=== PATIENT | female | born 1980 | race Caucasian/White ===

== ENCOUNTER 2019-02-24 20:44 | Inpatient (IN) | payer BC ==
[2019-02-24] MEDS ORDERED: NS 0.9% 1000 ML** 1,000 ML IV ONE (21:23)
[2019-02-24] MEDS ORDERED: Charcoal ACTIVATED* 25 GM/120 ML BTL PO ONE (21:23)
--- NOTE | 2019-02-24 21:25 | ED ---
Substance Abuse/Use - HPI Summary HPI Summary: Pt is a 38 year old F brought by EMS to [facility] with a chief complaint of substance abuse. Patient reports to have been at her fathers house when she took the whole bottle of Cymbalta pills after which her mom was bringing her by car to the ED but then EMS stopped them on the road completing the trip to the ED. Patient denies vomiting. Patient reports she didnt want to be here anymore . Per triage, patient took 30 60 mg of Cymbalta with 4 shots of [facility] [place] earlier tonight, 02/24/19. Symptoms aggravated by nothing. Symptoms alleviated by nothing. - History Of Current Complaint Chief Complaint: EDOverdose Stated Complaint: OVERDOSE PER EMS Time Seen by Provider: 02/24/19 21:19 Hx Obtained From: Patient Onset/Duration of Drug/ETOH Abuse: Hours Overdose Characteristics: Oral - pills Aggravating Factor(s): Nothing Alleviating Factor(s): Nothing Associated Signs And Symptoms: Other: - no vomiting - Allergies/Home Medications Allergies/Adverse Reactions: Allergies Allergy/AdvReac Type Severity Reaction Status Date / Time melatonin Allergy Hives Verified 02/24/19 21:03 Home Medications: Home Medications ALPRAZolam [Xanax] 1 mg PO BID PRN 02/24/19 [History Confirmed 02/24/19] DULoxetine CAP* [Cymbalta CAP*] 60 mg PO BID 02/24/19 [History Confirmed ] Gabapentin [Neurontin] 100 mg PO TID PRN 02/24/19 [History Confirmed 02/24/19] Meloxicam 7.5 mg PO BID PRN 02/24/19 [History Confirmed 02/24/19] Pantoprazole Sodium 40 mg PO DAILY 02/24/19 [History Confirmed 02/24/19] PMH/Surg Hx/FS Hx/Imm Hx Cardiovascular History: Reports: Hx Hypertension Sensory History: Denies: Hx Contacts or Glasses Opthamlomology History: Denies: Hx Contacts or Glasses - Surgical History Surgery Procedure, Year, and Place: tubal tonsillectomy Infectious Disease History: No Infectious Disease History: Denies: Traveled Outside the [place] in Last 30 Days - Family History Known Family History: Positive: Hypertension, Diabetes - Social History Alcohol Use: Occasionally Hx Substance Use: No Substance Use Type: Reports: None Hx Tobacco Use: No Smoking Status (MU): Never Smoked Tobacco Review of Systems Negative: Vomiting Psychological: Other - suicidal ideation, alcohol and substance abuse All Other Systems Reviewed And Are Negative: Yes Physical Exam - Summary Physical Exam Summary: VITAL SIGNS: Reviewed. GENERAL: Patient is a well-developed and nourished FEMALE who is lying comfortable in the stretcher. Patient is not in any acute respiratory distress. HEAD AND FACE: No signs of trauma. No ecchymosis, hematomas or skull depressions. No sinus tenderness. EYES: PERRLA, EOMI x 2, No injected conjunctiva, no nystagmus. EARS: Hearing grossly intact. Ear canals and tympanic membranes are within normal limits. MOUTH: Oropharynx within normal limits. NECK: Supple, trachea is midline, no adenopathy, no JVD, no carotid bruit, no c- spine tenderness, neck with full ROM CHEST: Symmetric, no tenderness at palpation LUNGS: Clear to auscultation bilaterally. No wheezing or crackles. CVS: Regular rate and rhythm, S1 and S2 present, no murmurs or gallops appreciated. ABDOMEN: Soft, non-tender. No signs of distention. No rebound no guarding, and no masses palpated. Bowel sounds are normal. EXTREMITIES: FROM in all major joints, no edema, no cyanosis or clubbing. NEURO: Alert and oriented x 3. No acute neurological deficits. Speech is normal and follows commands. SKIN: Dry and warm Psych: Suicidal Ideation Triage Information Reviewed: Yes Vital Signs On Initial Exam: Initial Vitals Temp Pulse Resp BP Pulse Ox 98.8 F 116 16 131/83 98 02/24/19 20:56 02/24/19 20:56 02/24/19 20:56 02/24/19 20:56 02/24/19 20:56 Vital Signs Reviewed: Yes Diagnostics - Vital Signs Vital Signs Temp Pulse Resp BP Pulse Ox 02/24/19 20:56 98.8 F 116 16 131/83 98 - Laboratory Result Diagrams: 02/24/19 21:38 02/24/19 21:38 Lab Statement: Any lab studies that have been ordered have been reviewed, and results considered in the medical decision making process. - EKG 2123 Cardiac Rate: NL - 108 BPM EKG Rhythm: Sinus Tachycardia Summary of EKG Findings: 108 BPM. Sinus tachycardia. Normal axis. Normal interval. No ischemic changes. Course/Dx - Course Course Of Treatment: Patient is a 38 year old F brought by EMS to [facility] with a chief complaint of substance abuse with rated severity of 5/10, per triage. Patient denies vomiting. Patient reports she didnt want to be here anymore. Per triage, patient took 30 60 mg of Cymbalta with 4 shots of [facility] earlier tonight, 02/24/19. Physical exam shows no abnormalities except for suicidal ideation. Bloodwork shows no abnormalities except for MCH 32 H and Potassium 2.9 L. Urinalysis shows no abnormalities except for Ur specific [place] 1.003 L, Urine Blood 1+ A, Ur Squamous Epith Cells Present A, Urine Bacteria 1+ A, and Serum Alcohol 90 H. Patient was given Charcoal 75 gm PO, Magnesium Sulfate 50 mls/hr, Metoclopramide Hcl 10 mg IV, Potassium Chloride 40 meq PO, Potassium Chloride 50 mls/hr, and saline. EKG reveals 108 BPM, Sinus tachycardia, Normal axis, Normal interval, and No ischemic changes. Patient was medically cleared for [facility]. Patient's case was reviewed by Dr. Donnelly, patient will be a voluntary admit [place] [facility] [place]. - Diagnoses Provider Diagnoses: Depressive episode - Physician Notifications Discussed Care Of Patient With: Paul Donnelly Time Discussed With Above Provider: 05:25 Instructed by Provider To: Other - Patient's case was reviewed by Dr. Donnelly, patient will be a voluntary admit to [facility] [place]. Discharge - Sign-Out/Discharge Documenting (check all that apply): Patient Departure - admit - Discharge Plan Condition: Stable Disposition: [facility]YCHIATRIC FACILITY[place] Referrals: Ran CABA,Bernadette Mclean [Primary Care Provider] - - Attestation Statements Document Initiated by Scribe: Yes Documenting Scribe: Danitza Farmer Provider For Whom Broderick is Documenting (Include Credential): Virginia Bunn MD Scribe Attestation: Mono Torres Alison Kim, scribed for Virginia Bunn MD on 02/25/19 at 0600. Status of Scribe Document: Ready
[2019-02-24 21:39] LABS: Urine Appearance Clear; Urine Bacteria 1+ (Absent); Urine Bilirubin Negative (Negative); Urine Blood 1+ (Negative); Urine Color Straw; Urine Glucose Negative (Negative); Urine Ketones Negative (Negative); Urine Nitrite Negative (Negative); Urine Protein Negative (Negative); Urine Red Blood Cell Trace(0-2/hpf) (Absent); Urine Specific Gravity 1.003 (1.010-1.030); Urine Squamous Epithelial Cell Present (Absent); Urine Urobilinogen Negative (Negative); Urine White Blood Cell Absent (Absent)
[2019-02-24 21:45] LABS: ABS Eosinophils 0.1 10^3/ul (0-0.6); ABS Lymphocytes 1.8 10^3/ul (1.0-4.8); ABS Monocytes 0.5 10^3/ul (0-0.8); ABS Neutrophils 4.1 10^3/ul (1.5-7.7); Eosinophil % 1.3 %; Hematocrit 43 % (35-47); Hemoglobin 14.3 g/dL (12.0-16.0); Lymphocyte % 27.3 %; Mean Corpuscular HGB Conc 34 g/dL (31-36); Mean Corpuscular Hemoglobin 32 pg (27-31); Mean Corpuscular Volume 95 fL (80-97); Mean Platelet Volume 8.7 fL (7.4-10.4); Nucleated Red Blood Cells % 0.1; Platelet Count 282 10^3/uL (150-450); Red Blood Count 4.52 10^6 /uL (3.70-4.87); Red Cell Distribution Width 15 % (10-15); White Blood Count 6.6 10^3/uL (3.5-10.8)
[2019-02-24 21:54] LABS: Urine Benzodiazepine Screen None Detected (None Detect); Urine Opiates Screen None Detected (None Detect)
[2019-02-24 22:02] LABS: ALT 25 U/L (7-52); AST 25 U/L (13-39); Albumin 4.2 g/dL (3.2-5.2); Albumin/Globulin Ratio 1.4 (1-3); Alkaline Phosphatase 81 U/L (34-104); Anion Gap 9 mmol/L (2-11); BUN/Creatinine Ratio 11.4 (8-20); Blood Urea Nitrogen 8 mg/dL (6-24); CO2 Carbon Dioxide 23 mmol/L (22-32); Calcium 8.7 mg/dL (8.6-10.3); Chloride 110 mmol/L (101-111); EGFR African American 113.9 (>60); EGFR Non-African American 94.2 (>60); Globulin 2.9 g/dL (2-4); Glucose 81 mg/dL (70-100); Potassium 2.9 mmol/L (3.5-5.0); Sodium 142 mmol/L (135-145); Total Protein 7.1 g/dL (6.4-8.9)
[2019-02-24 22:09] LABS: HCG Pregnancy < 0.60 mIU/mL
[2019-02-24 22:23] LABS: Acetaminophen < 15 mcg/mL; Alcohol 90 mg/dL (<10); Salicylate < 2.50 mg/dL (<30)
[2019-02-24] MEDS ORDERED: Metoclopramide IV* 5 MG/ML 2 ML VIAL IV SLOW PU ONE (22:28)
[2019-02-24] MEDS ORDERED: Potassium Chlor TAB* 20 MEQ TAB.ER PO ONE (22:34)
[2019-02-24] MEDS ORDERED: KCL 10 MEQ/50 ML IVPREMIX* 10 MEQ/50 ML BAG IV ONE (22:35)
[2019-02-24] MEDS ORDERED: Magnesium Sulfate 2 GM IV* 2 GM/50 ML BAG IVPB ONE (22:35)
[2019-02-24 22:38] LABS: TSH (Thyroid Stimulating Horm) 4.25 mcIU/mL (0.34-5.60)
[2019-02-25] MEDS ORDERED: Acetaminophen TAB* 325 MG ONE (11:13)
[2019-02-25] MEDS ORDERED: ALPRAZolam TAB* 0.5 MG PO ONE (11:15)
[2019-02-25] MEDS ORDERED: ALPRAZolam TAB* 0.5 MG ONE (11:17)
[2019-02-25] MEDS ORDERED: Al Hydrox/Mg Hydrox/Simet LIQ* 30 ML UDC PO PRN (11:45)
[2019-02-25] MEDS ORDERED: Pantoprazole TAB * 40 MG TAB PO SCH (14:00)
[2019-02-25] MEDS: Sulfamethox/Trimethoprim DS 800/160* TAB PO SCH ×2 (17:37→21:55)
[2019-02-25] MEDS: Pantoprazole TAB * 40 MG TAB PO SCH (17:38)
[2019-02-25] MEDS: ALPRAZolam TAB* 0.5 MG PO PRN (17:38)
--- NOTE | 2019-02-25 18:14 | HP ---
HISTORY AND PHYSICAL: DATE OF ADMISSION: 02/25/19 PROVIDER: Ivette Hernandez NP in Psychiatry SUPERVISING PHYSICIAN: Shakir Ramos MD * (DICTATED BY IVETTE HERNANDEZ NP ) JUSTIFICATION FOR ADMISSION: The patient is in need of 24-hour supervision and care secondary to suicidal ideation and status post over dose of Cymbalta. CHIEF COMPLAINT: "I always mess everything up. I hate this place. I just don' t understand it." HISTORY OF PRESENT ILLNESS: The patient is a 38-year-old white female with a history of major depressive disorder and anxiety disorder, who arrived brought in by her and is here on a voluntary status after taking approximately 30 60-mg Cymbalta capsules. Lona took these pills after deciding she felt as though she was "done for the day." She had alcohol and Coca-Cola. She drank approximately 4 shots of [place] and then took the Cymbalta along with it. This was precipitated by her 17 -year-old daughter who also lives with her father, which is Lona's ex- . Her daughter came to visit and was quite angry with Lona. The daughter, Dolores, wanted a pet rat that Lona said she could not have and that made Dolores, the daughter, cry and cry. She also got quite angry. Dolores also tends to push Lona's buttons by asking her to take her to [facility] [place] after Lona gets home from work. Lona has been diagnosed with fibromyalgia. She also believes she may have instead psoriatic arthritis; in any case, she is in pain by the end of the day. 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 The people she works with are not supportive. She states they are mean, they are inconsiderate and she feels as though she is the one who gets called on the carpet to answer for their bad behavior. 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 This is very hard on her body. Her doctor has asked that she only works 20 hours a week , but the [employer] will not employ her in this fashion and instead she must work 40. This pain she is in by the end of the day makes it quite hard for her to go to [facility] [place] with her daughter. The daughter is not understanding of Lona's difficulties. When Lona's found out she had taken an overdose he got quite upset "snapped." In addition, her father is sick with cancer and recently had a large portion of a tumor removed from his brain. The brain cancer had metastasized from his lungs and now there is also cancer in his shoulder and in his blood. These persistent stressors leave Lona feeling as though she cannot catch a break and that she is completely out of energy and reserves. PAST PSYCHIATRIC HISTORY: She has never been admitted to a psychiatric hospital before. She receives her medications from her primary care provider, Bernadette Tong MD. By the time she got to the hospital, she determined that she was no longer suicidal. However, she was unable to make convincingly safe statements, continuing to endorse the fact that she was tired and that she was done, and that she did not have much to live for. MEDICATIONS: Her medications include: 1. Cymbalta 60 mg, which she has taken for years. 2. Pantoprazole 40. 3. Propranolol 25. 4. Xanax 1 mg b.i.d. p.r.n. 5. Nicotine gum. 6. Meloxicam 7.5 mg. She takes this and finds relief. She can raise her arms over her head and she is much more free of pain than she is within the other medication. 7. She also takes gabapentin 100 mg b.i.d. with 100 mg t.i.d. available p.r.n. In addition, she takes caffeine in by way of coffee. She drinks 4 to 5 cups of coffee a day. FAMILY HISTORY: She states that she has always been the difficult child. Her brother, Daniel, was in and their mother brags about him, but not about the Lona. Lona states that her mother never wanted her, even though Lona now mows the lawn and helps around at home. SUBSTANCE ABUSE: Approximately a year ago, Lona was drinking every day, but now she has no one to drink with and she states she does not drink much now only once in a while with her father, but he is too sick to drink very often. SOCIAL HISTORY: She lives with her at home. Her daughter, Dolores, is 17 and she splits her time between Lona's ex- and Lona herself. 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 She has never been in the . She has no legal problems at this time. REVIEW OF SYSTEMS: The patient reports feeling fatigued. She denies shortness of breath, heat or cold intolerance, chest pain, or abdominal pain. She does have aches and pains throughout most of her body. She denies other neurological symptoms. Denies fever and changes in weight. PHYSICAL EXAMINATION GENERAL: The patient is a well-developed and nourished female who is sitting on the bench next to ak. She is not in any acute respiratory distress. VITAL SIGNS: On 02/25/19 at 06:22, temperature is 97.2, pulse 99, respirations 18, O2 sat 100, blood pressure 129/78. HEENT: Head and face: No signs of trauma, no ecchymosis, hematomas or skull depressions, no sinus tenderness. Eyes: PERRLA and EOMI x2, no injected conjunctiva, no nystagmus. Ears: Hearing grossly intact. Ear canal and tympanic membranes are within normal limits. Mouth: Oropharynx is within normal limits. NECK: Supple. Trachea midline. No adenopathy. No JVD. No carotid bruit. No C- spine tenderness. Neck with full range of motion. CHEST: Symmetric. No tenderness to palpation. LUNGS: Clear to auscultation bilaterally, no wheezing or crackles. CVS: Regular rate and rhythm. S1 and S2 present. No murmurs or gallops appreciated. ABDOMEN: Soft and nontender. No signs of distention. No rebound or guarding. No masses palpated. Bowel sounds are normal. EXTREMITIES: Full range of motion in all major joints. No edema. No cyanosis or clubbing. NEURO: Alert and oriented x4. No acute neurological deficits. Speech is normal and she follows commands. SKIN: Dry and warm. LABORATORY DATA: Most data are within normal limits. Exceptions include MCH high at 32, potassium low at 2.9. Urine specific gravity is low at 1.003. Urine blood is present at 1+, urine squamous epithelial cells are present, urine bacteria is 1+. Toxicology screen is negative with the exception of alcohol which is 90. MENTAL STATUS EXAM: Lnoa is a 5 feet 2 inches, 175 pounds white female with sanjana colored hair, wearing peach pants. She sits quite still. She demonstrates where her discomfort in her body is and she attempts to stretch her arms and cannot. She is hypokinetic. She has a somewhat slumped posture. She is calm and cooperative, although she is anxious and uncomfortable. Her speech is normal rate, tone and volume. She is dysthymic. She has a constricted sad affect. Her thought processes are normal. Her thought contents are free of delusions. She is not homicidal or suicidal at this time. She is not hallucinating. Her insight is fair. Her judgment is fair. She is alert and oriented x4. DIAGNOSES: 1. Major depressive disorder. 2. Generalized anxiety disorder. 3. Adjustment disorder. IMPRESSION: Lona is a 38-year-old white female with a diagnosis of depression and anxiety, who comes to the hospital following an overdose of Cymbalta for which she is successfully treated. She is admitted to the behavioral unit and is unhappy here, but is quite clearly depressed. PLAN: The patient is admitted to the adult behavioral health unit and placed on q.15 minute checks for her own safety. She is encouraged to participate in supportive, milieu, individual and group therapies. Estimated length of stay is 3 to 5 days. We will titrate medications including Cymbalta and meloxicam and monitor for mood and thought content. Discharge planning will include family involvement and outpatient providers. IVETTE HERNANDEZ NP [id number]/[facility] #: [id number] [place]
[2019-02-25] MEDS ORDERED: Sulfamethox/Trimethoprim DS 800/160* TAB PO SCH (21:00)
[2019-02-25] MEDS: Gabapentin CAP(*) 100 MG PO SCH (21:14)
[2019-02-26] MEDS: Gabapentin CAP(*) 100 MG PO PRN ×2 (05:27→18:46)
[2019-02-26] MEDS: Acetaminophen TAB* 325 MG PO PRN ×2 (05:27→12:13)
[2019-02-26] MEDS: CMCS: Meloxicam(NF) 7.5 MG TAB PO PRN ×2 (05:28→18:46)
[2019-02-26 07:42] LABS: HDL Cholesterol 35.9 mg/dL
[2019-02-26] MEDS: Gabapentin CAP(*) 100 MG PO SCH ×2 (08:52→20:13)
[2019-02-26] MEDS: Pantoprazole TAB * 40 MG TAB PO SCH (08:52)
[2019-02-26] MEDS: Sulfamethox/Trimethoprim DS 800/160* TAB PO SCH ×2 (08:52→20:13)
[2019-02-26] MEDS: Nicotine* 2MG (FRUIT FLAVOR) GUM PO PRN ×2 (08:53→16:38)
[2019-02-26] MEDS: ALPRAZolam TAB* 0.5 MG PO PRN ×2 (08:53→20:14)
[2019-02-26] MEDS: Vitamin THERAPEUTIC TAB PO SCH (08:55)
--- NOTE | 2019-02-26 13:56 | PN ---
BSU: Group Therapy Note - Service Type Service Type: 40096 Group Psychotherapy - Cognitive Behavioral Group Note: Lona described her difficulties with family dynamics at length in this morning 's group, describing how she feels her children are unconcerned with her well being. She also ventillated about work place dynamics, describing having hostile transference with everyone she is employed with. She described how her physical pain interferes with work function, as well as sleep hygiene. Lona was attentive to group discussion after being afforded the opportunity to ventilate her feelings.
--- NOTE | 2019-02-26 22:15 | PN ---
Subjective - Subjective Date of Service: 02/26/19 Service Type: 94187 Hosp care 15 min low complexity Subjective: Nohemy Garner, BRASS MOLDER HELPER, Lona's , Arya, and I met together to discuss Lona before going on to the unit. Arya is concerned about the stress that Lona's job is placing on her. He describes the stressors that Lona is experiencing and they are overwhelming. Later, I speak with Lona, her two daughters, and Arya. Lona is struggling with being on the unit, but she is willing to stay to discover if time away from her sources of distress will be helpful. In addition, she wisely requests a letter for work that will excuse her from the time she has been hospitalized and for four weeks after. We discuss that she may want to extend her time away longer or potentially find a new work situation. Her interactions with her family were gently strained, but they were also clearly coming to her aid. Objective - General Observations Appearance: Neat, Well Groomed Appears Stated Age: Yes Stature: Overweight Posture: WNL Eye Contact: Average Behavior/Activity: WNL - Interaction Observations Attitude Towards Examiner: Cooperative, Anxious, Defensive Stated Mood: Dysphoric, Anxious Affect: Full Speech Pattern/Tone: Clear Thought Process: Coherent, Goal Directed Perception: WNL Thought Content: Preoccupation/Ruminations Thought Process: Lethality: Passive Wish Hallucination Type: None Delusion Type: None - Cognitive Function Orientation: A&O x 4 Level of Consciousness: Awake, Alert, Appropriate Cognition: Impaired Attention/Concentration Estimated Intelligence: Normal Insight: Difficulty Acknowledging Presence of Psyciatric Problems Judgment Within Normal Limits: No Ability to Make Reasonable Decisions: Mildly Impaired - Medication Compliance Cooperative with Inpatient Medication Regimen: Yes - Group Participation Participates in Group Activities: Yes Assessment - Assessment Merits Inpatient Hospitalization: For Immediate Safety Inpatient DSM-V Dx: F33.2 Clinical Impression: Lona is a 38-year-old white woman who is diagnosed with major depressive disorder, severe, and generalized anxiety disorder who comes to the hospital with suicidal thoughts following a significant number of stressors that have added up to an inability to adequately cope. Plan - Plan Treatment Plan: Name: LONA FITZPATRICK Birthdate: 1980 [id number] Lona will stay in the hospital over the weekend and attend groups and interact in the milieu. Cymbalta will be increased to 90 mg. Continued Medication Management: Different Medication Medications: Current Medications Acetaminophen (Tylenol Tab*) 650 mg PO Q4H PRN PRN Reason: PAIN or TEMP > 101 F Last Admin: 02/26/19 12:13 Dose: 650 mg Al Hydrox/Mg Hydrox/Simethicone (Maalox Plus*) 30 ml PO Q4H PRN PRN Reason: INDIGESTION Alprazolam (Xanax Tab*) 1 mg PO TID PRN PRN Reason: ANXIETY/INSOMNIA Last Admin: 02/26/19 20:14 Dose: 1 mg Duloxetine HCl (Cymbalta Cap*) 90 mg PO DAILY [facility] Gabapentin (Neurontin Cap(*)) 100 mg PO BID [facility] Last Admin: 02/26/19 20:13 Dose: 100 mg Gabapentin (Neurontin Cap(*)) 100 mg PO TID PRN PRN Reason: PAIN Last Admin: 02/26/19 18:46 Dose: 100 mg Meloxicam (Mobic(Nf)) 7.5 mg PO BID PRN PRN Reason: PAIN Last Admin: 02/26/19 18:46 Dose: 7.5 mg Multivitamins (Theragran Tab*) 1 tab PO DAILY [facility] Last Admin: 02/26/19 08:55 Dose: Not Given Nicotine Polacrilex (Nicotine Gum*) 2 mg PO Q2H PRN PRN Reason: CRAVINGS Last Admin: 02/26/19 16:38 Dose: 2 mg Pantoprazole Sodium (Protonix Tab*) 40 mg PO DAILY [facility] Last Admin: 02/26/19 08:52 Dose: 40 mg Trimethoprim/Sulfamethoxazole (Bactrim Ds 800/160 Tab*) 1 tab PO BID [facility] Stop: 03/01/19 21:01 Last Admin: 02/26/19 20:13 Dose: 1 tab
[2019-02-27] MEDS: Acetaminophen TAB* 325 MG PO PRN ×2 (02:57→17:38)
[2019-02-27] MEDS: ALPRAZolam TAB* 0.5 MG PO PRN ×3 (06:30→20:34)
[2019-02-27] MEDS: DULoxetine DR CAP* 30 MG CAP.DR PO SCH (08:56)
[2019-02-27] MEDS: Sulfamethox/Trimethoprim DS 800/160* TAB PO SCH ×2 (08:57→20:35)
[2019-02-27] MEDS: Gabapentin CAP(*) 100 MG PO SCH ×2 (08:57→20:36)
[2019-02-27] MEDS: Pantoprazole TAB * 40 MG TAB PO SCH (08:57)
[2019-02-27] MEDS: CMCS: Meloxicam(NF) 7.5 MG TAB PO PRN ×2 (08:59→20:33)
[2019-02-27] MEDS: Vitamin THERAPEUTIC TAB PO SCH (08:59)
[2019-02-27] MEDS: Nicotine* 2MG (FRUIT FLAVOR) GUM PO PRN ×2 (11:28→15:32)
[2019-02-28] MEDS: ALPRAZolam TAB* 0.5 MG PO PRN ×2 (05:25→14:39)
[2019-02-28] MEDS: Acetaminophen TAB* 325 MG PO PRN (05:25)
[2019-02-28] MEDS: Gabapentin CAP(*) 100 MG PO PRN (07:30)
[2019-02-28] MEDS: CMCS: Meloxicam(NF) 7.5 MG TAB PO PRN ×2 (07:30→20:47)
[2019-02-28] MEDS: DULoxetine DR CAP* 30 MG CAP.DR PO SCH (09:00)
[2019-02-28] MEDS: Gabapentin CAP(*) 100 MG PO SCH ×2 (09:01→20:45)
[2019-02-28] MEDS: Sulfamethox/Trimethoprim DS 800/160* TAB PO SCH ×2 (09:01→20:45)
[2019-02-28] MEDS: Pantoprazole TAB * 40 MG TAB PO SCH (09:01)
[2019-02-28] MEDS: Vitamin THERAPEUTIC TAB PO SCH (09:01)
[2019-02-28] MEDS: Nicotine* 2MG (FRUIT FLAVOR) GUM PO PRN (14:39)
[2019-03-01] MEDS: CMCS: Meloxicam(NF) 7.5 MG TAB PO PRN (06:32)
[2019-03-01] MEDS: Gabapentin CAP(*) 100 MG PO PRN (06:33)
[2019-03-01 08:27] VITALS: BP 131/81
[2019-03-01] MEDS: Pantoprazole TAB * 40 MG TAB PO SCH (09:30)
[2019-03-01] MEDS: Sulfamethox/Trimethoprim DS 800/160* TAB PO SCH (09:30)
[2019-03-01] MEDS: Vitamin THERAPEUTIC TAB PO SCH (09:31)
[2019-03-01] MEDS: Gabapentin CAP(*) 100 MG PO SCH (09:31)
[2019-03-01] MEDS: ALPRAZolam TAB* 0.5 MG PO PRN ×2 (09:33→12:28)
[2019-03-01] MEDS: DULoxetine DR CAP* 30 MG CAP.DR PO SCH (09:34)
--- NOTE | 2019-03-01 13:50 | PN ---
BSU: Group Therapy Note - Service Type Service Type: 18349 Group Psychotherapy - Cognitive Behavioral Group Therapy ( CBT):Patient was attentive and participatory in CBT programming this morning, and remained in good behavioral control. Patient expressed positive insights regarding relevant treatment interventions and goals.
[2019-03-01] MEDS ORDERED: Sulfamethox/Trimethoprim DS 800/160* TAB PO SCH (14:00)
--- NOTE | 2019-03-01 23:45 | DS ---
CC: [facility]; Dr. Bernadette Tong * DISCHARGE SUMMARY: DATE OF ADMISSION: 02/25/19 DATE OF DISCHARGE: 03/01/19 PROVIDER: Ivette Hernandez NP, Psychiatry. SUPERVISING PHYSICIAN: Shakir Ramos MD * (DICTATED BY IVETTE HERNANDEZ NP) DIAGNOSES: 1. Major depressive disorder. 2. Generalized anxiety disorder. CONDITION AT THE TIME OF DISCHARGE: Improved. Psychiatrically cleared, stable. Lona participated in groups and was social with peers. Her , Arya, is agreeable to discharge. She has done well here psychiatrically. She tolerated new meds well and she will be attending [facility]. MENTAL STATUS EXAM: At the time of discharge, Lona is calm, cooperative, and makes good eye contact. She is alert and oriented x4. Her grooming is good. Her speech pace is normal. Her thought processes are logical. She is not psychotic or delusional. She denies AH, VH, SI, and HI. Her insight and judgment are good. She is willing to follow up and she is urged to see a therapist. DISCHARGE INSTRUCTIONS TO THE PATIENT: A. Medications: 1. Xanax 1 mg b.i.d. 2. Cymbalta 90 mg daily. 3. Gabapentin 100 mg b.i.d. scheduled, 100 mg t.i.d./p.r.n. 4. Meloxicam 7.5 mg b.i.d. p.r.n. pain. 5. Multivitamin. 6. Protonix 40 mg daily. 7. She took Bactrim DS 1 tab of 800/160 b.i.d. Her last dose was ordered at 2 p.m. B. Diet is regular. C. Activities as tolerated. She is a smoker, but she has declined a referral to [place] [facility] at this time. If she decides to access this free service in the future, she can contact the [facility] toll free at . There are no studies pending at the time of discharge. D. Followup care. She has an appointment at [facility] on Friday, 03/03 at 1:30 with Roshni. She also is recommended to see Dr. Bernadette Tong in [place] within 30 days of discharge. E. Disposition. Lona is discharged to her home. F. Substance abuse followup is not indicated. HOSPITAL COURSE: Part A: Chief complaint: "I always mess everything up. I hate this place. I just don't understand it." The patient is a 38-year-old white female with a history of major depressive disorder and anxiety disorder, who arrived brought in by her and is here on a voluntary status after taking approximately thirty 60 mg Cymbalta capsules. Lona took these pills after deciding she felt as though she was "done for the day." She had alcohol and Coca-Cola. She drank approximately 4 shots of Chical [place] and then took the Cymbalta along with it. This was precipitated by her 17 - year-old daughter who also lives with her father, which is Lona's ex- . Her daughter came to visit and was quite angry with Lona. The daughter, Dolores, wanted a pet rat that Lona said she could not have and that Dolores, the daughter started to cry and cry. She also got quite angry. Dolores also tends to push Lona's buttons by asking her to take her to [facility] after Lona gets home from work. Lona has been diagnosed with fibromyalgia. She also believes she may have instead psoriatic arthritis; in any case, she is in pain by the end of the day. 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 The people she works with are not supportive. She states they are mean, they are inconsiderate and she feels as though she is the one who gets called on the carpet to answer for their bad behavior. 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 This is very hard on her body. Her doctor has asked that she only work 20 hours a week , but the [employer] will not employ her in that fashion and instead she must work 40. The pain she is in by the end of the day makes it quite hard for her to go to [facility] with her daughter. Her daughter is not understanding of Lona's difficulties. When Lona's found out she had taken an overdose, he got quite upset and "snapped". In addition, her father is sick with cancer and recently had a large portion of a tumor removed from his brain. The brain cancer had metastasized from his lungs and now there is also cancer in his shoulder and in his blood. These persistent stressors leave Lona feeling as though she cannot catch a break and that she is completely out of energy and reserves. Part B. Psychiatric treatment was rendered. Lona was admitted to the Adult Behavioral Unit and placed on 15-minute checks for safety. She did advance to 30- minute checks and staff pass privileges. She did well on the unit and went to groups. She interacted with her peers well. She found DBT and CBT to be especially helpful groups to her, and she was motivated to ask how she could work on them in the outpatient setting. oLna and I discussed adding Abilify to her medication list, but instead determined that increasing Cymbalta would be more in line with what she wanted and also with her 's desire to see her on fewer medications. We did meet with her , Arya, and also with her 2 daughters. The daughters seemed quite frustrated and afraid, but some of this was due to meeting on a psychiatric unit. Her seemed to become more calm the more he talked about what the possibilities were for Lona's future, including her getting a new job that would also allow her to maintain health insurance coverage. There were no consults entered for Lona. She is much improved. Her anxiety is lower. She identified meditation and yoga as 2 methods to decrease her anxiety she found that reduced her stress. She also noted that despite wanting to leave the hospital on Friday, she benefitted by staying until Friday because the groups were helpful and she "needed a rest." She is future oriented and is eager to take time away from work to help herself learn what she needs to do to improve her lifestyle to fit in with what she needs. IVETTE HERNANDEZ, ROMA [id number]/[facility] #: [id number] MTDD
[2019-03-02] MEDS ORDERED: DULoxetine DR CAP* 30 MG CAP.DR PO SCH (09:00)
[2019-03-02] MEDS ORDERED: DULoxetine DR CAP* 60 MG CAP.DR PO SCH (09:00)
== END 2019-03-01 13:45 | disposition home or self-care (01) | DRG 751 ==
LOC: ED 20:44 → BSU 02-25 06:04
PROVIDERS: ADMIT Psychiatry & Neurology Psychiatry; ATTEND Psychiatry & Neurology Psychiatry
PROC: GZHZZZZ Group Psychotherapy (ICD-10-PCS; principal; 2019-02-26)
DX: F33.2 Major depressive disorder, recurrent severe without psychotic features (principal); R45.851 Suicidal ideations; F41.1 Generalized anxiety disorder; M79.7 Fibromyalgia; T43.212A Poisoning by selective serotonin and norepinephrine reuptake inhibitors, intentional self-harm, initial encounter; E66.3 Overweight; F43.20 Adjustment disorder, unspecified; I10 Essential (primary) hypertension; Z82.49 Family history of ischemic heart disease and other diseases of the circulatory system; Z80.8 Family history of malignant neoplasm of other organs or systems; Z80.1 Family history of malignant neoplasm of trachea, bronchus and lung; Y92.009 Unspecified place in unspecified non-institutional (private) residence as the place of occurrence of the external cause; Z88.8 Allergy status to other drugs, medicaments and biological substances; Z83.3 Family history of diabetes mellitus; Z72.89 Other problems related to lifestyle; Z68.32 Body mass index [BMI] 32.0-32.9, adult
CPT/HCPCS: 36415; 80053; 80061; 80307; 80320; 80329; 81003; 81015; 83036; 84443; 84702; 85025; 87086; 90853; 93005; 99222; 99231; 99238; 99285; A9270-GY; G0480; J2765; J3475; J3480